=== PATIENT | female | born 1940 | race Caucasian/White ===

== ENCOUNTER → 2016-08-04 | Outpatient (CLI) | payer OTHER, MEDICARE | LOC: MMPC 09:00 | PROVIDERS: ATTEND Obstetrics & Gynecology | DX: N39.46 Mixed incontinence (principal) ==

== ENCOUNTER 2016-08-20 07:36 | Day surgery (SDC) | payer OTHER, MEDICARE ==
[~2016-08-20 07:36] MED LIST: Lactated Ringers 1,000 ML PRIMARY IV ONE; Sodium Chloride 0.9% 100 ML IV ONE
[2016-08-20 07:58] LABS: BILIRUBIN,URINE NEGATIVE (NEG); COLOR,URINE YELLOW; GLUCOSE, URINE (UA) NEGATIVE (NEG); NITRATE,URINE NEGATIVE (NEG); OCCULT BLOOD,URINE NEGATIVE (NEG); PH,URINE 7.5 (5.0-8.5); PROTEIN,URINE NEGATIVE (NEG); UROBILINOGEN,URINE 0.2 mg/dL (0.2)
[2016-08-20 08:02] LABS: CLARITY,URINE CLEAR (CLEAR)
[2016-08-20 08:04] LABS: RBC,URINE 0 /hpf; SQUAMOUS EPITHELIAL CELL,UR RARE; URINE SAMPLE TYPE CLEAN CATCH URINE; WBC,URINE RARE
[2016-08-20 08:09] VITALS: RESP 16
[2016-08-20] MEDS ORDERED: LIDOCAINE MPF 2% - 5 ML (20 MG/1 ML) ONE (08:11)
[2016-08-20] MEDS ORDERED: fentaNYL Inj 250 MCG/5 ML VIAL ONE (08:11)
[2016-08-20] MEDS ORDERED: MIDAZOLAM 5 MG/1 ML ONE (08:11)
[2016-08-20 08:16] LABS: HEMATOCRIT 39.6 % (37.0-47.0)
[2016-08-20] MEDS: LIDOCAINE W/ SODIUM BICARB 0.5 ML SYR ONE (08:25)
[2016-08-20] MEDS ORDERED: BUPivacaine Inj 0.25% PF - 10ml vial ONE (08:56)
[2016-08-20] MEDS ORDERED: BUPIVACAINE 0.25% W/ EPI - 10 ML VIAL ONE (09:04)
[2016-08-20] MEDS ORDERED: ONDANSETRON 4 MG/2 ML VIAL ONE (09:28)
[2016-08-20] MEDS ORDERED: KETOROLAC 30 MG/1 ML VIAL ONE (09:28)
[2016-08-20] MEDS ORDERED: Lactated Ringers 1,000 ML PRIMARY IV ONE (09:47)
[2016-08-20] MEDS ORDERED: IBUPROFEN 400 MG TABLET PO PRN (09:52)
[2016-08-20] MEDS ORDERED: HYDROcodone-APAP 5 MG -325 MG TABLET PO PRN (09:52)
[2016-08-20] MEDS ORDERED: DOCUSATE 100 MG CAPSULE PO PRN (09:52)
[2016-08-20] MEDS ORDERED: NORMAL SALINE 10 ML SYRINGE FLUSH IVP PRN (09:52)
--- NOTE | 2016-08-20 10:04 | OB.OP.NOTE ---
Operative Report Surgeon: [facility] Nurse: Mata Kelsey MD Anesthesia Type: General Anesthesia Provider: Caio Epps CRNA Surgery Date: 08/20/16 Preoperative Diagnosis: VERA Postoperative Diagnosis: Same Procedure: TVT-O Estimated Blood Loss (mL): 25 Fluids: 1000 ml Complications: None Findings at Surgery: Good placement of mesh without tension Indications for the Procedure: VERA Description of Procedure: The patient was taken to the operating room and placed supine where general laryngeal mask anesthesia was administered. She was then placed in lithotomy position in [facility] She was prepped and draped in the normal sterile fashion a Trejo catheter was placed. The anterior vaginal mucosa was grasped in the midline approximatey 1-1/2 cm proximal to the urethral meatus and again 2 cm proximal to that. Quarter percent Marcaine with epinephrine was injected submucosally between the Allis clamps and laterally to the pubic rami on both sides. Metzenbaum scissors were then used to create is some mucosal dissection on the right side to the pubic ramus. The winged tip guide was placed in this dissection. The right-sided TVT O introducer was passed along the winged guide and rotated out through the obturator foramen and the skin on the medial aspect of the thigh. The tip of the introducer was grasped with a snap. The middle portion of the introducer the winged guide were removed from the vagina. The tip was then pulled through until mesh was exposed outside the skin. Metzenbaum scissors was then used to create the same dissection on the left side and again the winged tip guide was placed. The left-sided introducer was then passed along the length of guide and rotated out through the obturator foramen and the skin on the medial aspect of the thigh. The middle portion introducer and the winged guide removed. Introducer tip was grasped with a snap and pulled through until mesh was exposed outside the skin. Symmetric traction on both tips then resulted in reduction of the mesh loop. A #8 Hegar dilator was placed between the mesh loop and the suburethral tissue. The mesh was then drawn up under the dilator was symmetric traction. The introducer tips were then cut from the mesh sleeves with scissors. The sleeves were grasped with Francia clamps on both sides. While the dilator maintain proper spacing the sleeves were removed with symmetric traction. The mesh arms were then trimmed at the skin edges. The mucosal incision was closed with a running 2-0 Vicryl suture. Palpation of the anterior vaginal angles was then made and mesh was palpated perforating the mucosa on the left side. However, the introitus was too small in caliber to allow visualization of the mesh which was exposed so that it could be buried under the mucosa. Therefore, the mucosal incision was reopened using Metzenbaum scissors and the mesh was removed. A second TVT kit was obtained. The right sided introducer was passed along the previous dissection and out through the same canal and the obturator foramen and the skin. Metzenbaum scissors were then used to create an alternate dissection track on the left side to avoid the mucosal perforation. The length it got was placed in this dissection and the left-sided introducer was passed along the winged guide and rotated up through the obturator foramen and the skin on the medial aspect of the thigh through the previous puncture site. Symmetric traction on both arms resulted in reduction of the mesh loop. Palpation revealed good placement without perforation of the mucosa. The #8 Hegar dilator was again placed in the loop of mesh. The mesh was drawn up onto the dilator was symmetric traction. The introducer tips were cut from the mesh sleeves and the sleeves were removed with symmetric traction. The dilator was removed and good placement of the mesh without tension was noted. The mucosal incision was reclosed with a running 2-0 Vicryl suture. The mesh arms were trimmed at the skin edges and the skin wounds were closed with Dermabond. The vagina was irrigated, inspected and good hemostasis was noted. Sponge, lap, and needle counts were correct 2, there were no complications at surgery, and the patient left to recovery in good condition. Plan: Routine postop care and discharge to home.
[2016-08-20 13:09] VITALS: TEMP 97.5
== END 2016-08-20 12:00 | disposition home or self-care (01) ==
LOC: SDSC 07:36
PROVIDERS: ATTEND Obstetrics & Gynecology
DX: N39.3 Stress incontinence (female) (male) (principal)
CPT/HCPCS: 57288 ×2; 81001; 85014; 85018; J0694; J1885; J2704; J3010; J2001; J2250; J2405; J7050; J7120